=== PATIENT | female | born 1960 | race Caucasian/White ===

== ENCOUNTER 2022-02-07 07:48 | Day surgery (SDC) | payer OTHER ==
[2022-02-05 11:56] VITALS: BMI 31.0
[2022-02-07] MEDS ORDERED: PROPOFOL 60 ML ONE (08:52)
[2022-02-07] MEDS ORDERED: CEFAZOLIN 2 GM in DEXTROSE 5%-WATER - 50 ML IVPB ONE (09:00)
[2022-02-07] MEDS ORDERED: MIDAZOLAM HCL 2 MG/2 ML SINGLE DOSE VIAL ONE ×2 (09:16→09:49)
[2022-02-07] MEDS ORDERED: TRANEXAMIC ACID 1000 MG/10 ML VIAL IVPUSH ONE (10:00)
[2022-02-07] MEDS ORDERED: BUPIVACAINE LIPOSOME/PF (EXPAREL) 266 MG/20 ML VIAL ONE (10:29)
[2022-02-07] MEDS ORDERED: ACETAMINOPHEN INJECTION 100 ML IVPB ONE (10:29)
[2022-02-07] MEDS ORDERED: BUPIVACAINE HCL/PF 0.5% (5MG/ML) 10 ML VIAL ONE (10:29)
[2022-02-07] MEDS ORDERED: PROPOFOL 20 ML ONE ×3 (11:14→13:22)
[2022-02-07] MEDS ORDERED: TRANEXAMIC ACID 1000 MG/10 ML VIAL ONE (11:28)
[2022-02-07] MEDS ORDERED: ceFAZolin SODIUM 1 GM VIAL ONE ×2 (11:28)
[2022-02-07] MEDS ORDERED: ONDANSETRON 4 MG/2 ML VIAL IVPUSH PRN ×2 (13:58→14:00)
[2022-02-07] MEDS ORDERED: FAMOTIDINE 20 MG/50 ML IVPB 20 MG/50 ML MG IVPB ONE (13:59)
[2022-02-07] MEDS ORDERED: LACTATED RINGERS SOLUTION 1,000 ML IV SCH ×2 (14:00)
[2022-02-07] MEDS ORDERED: MAG HYDROX/AL HYDROX/SIMETH 30 ML UNIT-DOSE CUP PO PRN (14:00)
[2022-02-07] MEDS ORDERED: ALBUTEROL SO4 HFA INHALER IH SCH (14:15)
[2022-02-07] MEDS: HYDROmorphone HCl 2 MG/ML VIAL IVPB PRN ×2 (19:35→23:21)
[2022-02-07] MEDS: SENNOSIDES/DOCUSATE COMBO (SENNA PLUS) TABLET (UD) PO SCH (21:10)
[2022-02-07] MEDS: ACETAMINOPHEN 1000 MG/100 ML BAG IVPB SCH (21:12)
[2022-02-07] MEDS ORDERED: MONTELUKAST NA 10 MG TABLET PO SCH (22:00)
[2022-02-07] MEDS ORDERED: DEXAMETHASONE SOD PHOSPHATE 4 MG/1 ML VIAL IVPUSH ONE (22:00)
[2022-02-07] MEDS ORDERED: DEXAMETHASONE 4 MG TABLET (FP) PO ONE (22:00)
[2022-02-07] MEDS ORDERED: CELECOXIB 200 MG CAPSULE PO SCH (22:00)
[2022-02-07] MEDS: FAMOTIDINE 20 MG TABLET PO SCH (23:31)
[2022-02-08] MEDS: ASPIRIN 81 MG CHEWABLE TABLETS PO SCH ×2 (00:11→09:31)
[2022-02-08 03:39] VITALS: RESP 18
[2022-02-08] MEDS: ACETAMINOPHEN 1000 MG/100 ML BAG IVPB SCH ×2 (06:37→12:34)
[2022-02-08] MEDS: HYDROmorphone HCl 2 MG/ML VIAL IVPB PRN (08:24)
[2022-02-08] MEDS: FAMOTIDINE 20 MG TABLET PO SCH (09:31)
[2022-02-08] MEDS: SENNOSIDES/DOCUSATE COMBO (SENNA PLUS) TABLET (UD) PO SCH (09:31)
[2022-02-08] MEDS ORDERED: ONDANSETRON 4 MG/2 ML VIAL IVPUSH PRN (09:53)
[2022-02-08 14:02] VITALS: BP 146/73; PULSE 61; TEMP 97.7
[2022-02-08] MEDS ORDERED: CEFAZOLIN SODIUM 2 GM in DEXTROSE 5%-WATER 100 ML IVPB SCH (19:30)
== END 2022-02-08 16:35 | disposition home or self-care (01) ==
LOC: FASUSAT 07:48 → FM/S 16:08 → FASUSAT 02-08 16:35
PROVIDERS: ATTEND Orthopaedic Surgery
PROC: 0SRD0J9 Replacement of Left Knee Joint with Synthetic Substitute, Cemented, Open Approach (ICD-10-PCS; principal; 2022-02-07 11:45)
DX: M17.12 Unilateral primary osteoarthritis, left knee (principal)
CPT/HCPCS: 27447; C1776; 73560-TC-LT-FY; 94760; 97010-GP; 97116-GP; 97162-GP; C1889